=== PATIENT | male | born 1960 | race Caucasian/White ===

== ENCOUNTER 2020-04-30 14:50 | Inpatient (IN) | payer OTHER ==
[~2020-04-30] VITALS: Ht 175.3 cm; Wt 120.1 kg
[2020-04-30] MEDS: BUDESONIDE (INHALATION) 180 MCG IH IN SCH (06:54)
[2020-04-30] MEDS: ALBUTEROL SULF HFA 90MCG INH 200DOSE IN SCH (06:54)
[2020-04-30 16:08] LABS: Basophils # (auto) 0 10 ^3/uL (0-0.2); Basophils % (auto) 0.3 % (0.0-2.0); Eosinophils # (auto) 0 10 ^3/uL (0-0.8); Eosinophils % (auto) 0.3 % (0.0-7.0); Hematocrit 43.3 % (41.0-53.0); Hemoglobin 14.5 g/dL (13.5-17.5); Lymphocytes # (auto) 0.5 10 ^3/uL (0.4-5.4); Lymphocytes % (auto) 14.3 % (10.0-50.0); Mean Corpuscular Hemoglobin 29.4 pg (28.0-32.0); Mean Corpuscular Hgb Conc. 33.5 g/dL (32.0-36.0); Mean Corpuscular Volume 87.7 fL (80.0-100.0); Monocytes # (auto) 0.2 10 ^3/uL (0-1.3); Monocytes % (auto) 5.3 % (0.0-12.0); Neutrophils % (auto) 79.8 % (37.0-80.0); Nucleated Red Blood Cells % 0.1 %; Platelet Count (auto) 207 10^3/uL (140-450); Red Blood Cells 4.94 10^6/uL (4.5-5.90); Red Cell Distribution Width 14.5 % (11.8-14.3); White Blood Cell 3.7 10^3/uL (4.4-10.8)
[2020-04-30 16:16] LABS: Albumin 3.1 g/dL (3.4-5.0); Anion Gap 3 (5-15); Blood Urea Nitrogen 25 mg/dL (7-18); Calcium 8.8 mg/dL (8.5-10.1); Carbon Dioxide 28 mmol/L (21-32); Chloride 110 mmol/L (98-107); Glucose 101 mg/dL (74-106); Potassium 4.5 mmol/L (3.5-5.1); Sodium 141 mmol/L (136-145)
[2020-04-30 16:31] LABS: Alanine Aminotransferase 22 U/L (16-61); Alkaline Phosphatase 74 U/L (45-117); Aspartate Aminotransferase 29 U/L (15-37); BUN/Creatinine Ratio 20.5; Bilirubin, Total 0.5 mg/dL (0.2-1.0); GFR African American 78 mL/min; GFR Non-African American 64 mL/min
[2020-04-30] MEDS ORDERED: BAMLANIVIMAB 700MG/200ML 200 ML IV ONE (17:00)
[2020-04-30] MEDS ORDERED: DexAMETHasone SOD PHOS 10MG/1ML VIAL INJ ONE (17:47)
[2020-04-30] MEDS ORDERED: CHOLECALCIFEROL (VITD3) 2,000 UNIT CAP PO ONE (18:15)
[2020-04-30] MEDS ORDERED: ALBUTEROL SULF 2.5 MG/0.5ML(0.5%) NEB SOLN NEB PRN (18:15)
[2020-04-30] MEDS ORDERED: NITROGLYCERIN 0.4 MG SL TAB SL PRN (18:15)
[2020-04-30] MEDS ORDERED: REMDESIVIR PER PHARMACY 0 ML IV SCH (18:15)
[2020-04-30] MEDS ORDERED: ZINC SULFATE 220mg CAP or TAB PO ONE (18:15)
[2020-04-30] MEDS ORDERED: DexAMETHasone SOD PHOS 10MG/1ML VIAL INJ IV ONE (18:15)
[2020-04-30] MEDS ORDERED: MORPHINE SULF INJ 2 MG/ML SYRINGE 1ML IV PRN (18:15)
[2020-04-30] MEDS ORDERED: BUDESONIDE (INHALATION) 0.5 MG/2 ML NEB NEB ONE (18:15)
[2020-04-30] MEDS ORDERED: ASCORBIC ACID 500 MG TAB PO ONE (18:15)
[2020-04-30] MEDS ORDERED: ENOXAPARIN SOD 40 MG/0.4 ML SYRINGE SC ONE (18:30)
[2020-04-30] MEDS: DOXYCYCLINE 100MG/250ML 250 ML IV SCH (18:37)
[2020-04-30] MEDS ORDERED: LOSA-69 PO (19:58)
[2020-04-30] MEDS ORDERED: BUPR300T28 PO (19:58)
[2020-04-30] MEDS ORDERED: ATEN-60 PO (19:58)
[2020-04-30] MEDS ORDERED: ALLO300T2 PO (19:58)
[2020-04-30] MEDS ORDERED: HYDR-531 PO (19:58)
[2020-04-30] MEDS ORDERED: REMDESIVIR 200 MG in NS 210ml LOADING DOSE ADULT IV ONE (20:30)
[2020-04-30] MEDS: FAMOTIDINE (10MG/ML) 2ML VL IV SCH (20:42)
[2020-04-30] MEDS: ASCORBIC ACID 500 MG TAB PO SCH (20:42)
[2020-04-30] MEDS: ACETAMINOPHEN 325 MG TAB PO PRN (20:53)
[2020-04-30] MEDS ORDERED: BUDESONIDE (INHALATION) 0.5 MG/2 ML NEB NEB SCH (22:00)
[2020-04-30] MEDS ORDERED: PATIENTS OWN MEDICATION (PULMICORT 360 MCG) IN SCH (22:00)
[2020-04-30 22:36] LABS: Urine Bacteria NONE SEEN /hpf (None Seen); Urine Blood TRACE /uL (Negative); Urine Mucus FEW (None Seen); Urine Specific Gravity 1.029 (1.001-1.035); Urine WBC 1 /hpf (0 - 3)
[2020-04-30 23:56] VITALS: BP 141/83
[2020-05-01] MEDS: ENOXAPARIN SOD 40 MG/0.4 ML SYRINGE SC SCH ×2 (05:28→18:20)
[2020-05-01] MEDS: DOXYCYCLINE 100MG/250ML 250 ML IV SCH ×2 (05:29→20:52)
[2020-05-01] MEDS: BUDESONIDE (INHALATION) 180 MCG IH IN SCH ×2 (06:54→18:39)
[2020-05-01] MEDS: ALBUTEROL SULF HFA 90MCG INH 200DOSE IN SCH ×3 (06:54→18:39)
[2020-05-01 08:00] VITALS: BP 126/67
[2020-05-01] MEDS: FAMOTIDINE (10MG/ML) 2ML VL IV SCH ×2 (10:30→22:00)
[2020-05-01] MEDS: CHOLECALCIFEROL (VITD3) 2,000 UNIT CAP PO SCH (10:31)
[2020-05-01] MEDS: ZINC SULFATE 220mg CAP or TAB PO SCH (10:31)
[2020-05-01] MEDS: ASCORBIC ACID 500 MG TAB PO SCH ×2 (10:31→22:37)
[2020-05-01] MEDS: ACETAMINOPHEN 325 MG TAB PO PRN ×2 (10:31→18:30)
[2020-05-01] MEDS: DexAMETHasone SOD PHOS 10MG/1ML VIAL INJ IV SCH (10:32)
[2020-05-01 11:33] LABS: Basophils # (auto) 0 10 ^3/uL (0-0.2); Basophils % (auto) 0.1 % (0.0-2.0); Eosinophils # (auto) 0 10 ^3/uL (0-0.8); Hematocrit 42.3 % (41.0-53.0); Hemoglobin 14.1 g/dL (13.5-17.5); Lymphocytes # (auto) 0.4 10 ^3/uL (0.4-5.4); Lymphocytes % (auto) 10.5 % (10.0-50.0); Mean Corpuscular Hemoglobin 28.9 pg (28.0-32.0); Mean Corpuscular Hgb Conc. 33.3 g/dL (32.0-36.0); Mean Corpuscular Volume 86.8 fL (80.0-100.0); Monocytes # (auto) 0.3 10 ^3/uL (0-1.3); Monocytes % (auto) 6.7 % (0.0-12.0); Neutrophils # (auto) 3.1 10 ^3/uL (1.6-8.6); Neutrophils % (auto) 82.7 % (37.0-80.0); Nucleated Red Blood Cells % 0.2 %; Platelet Count (auto) 240 10^3/uL (140-450); Red Blood Cells 4.87 10^6/uL (4.5-5.90); White Blood Cell 3.8 10^3/uL (4.4-10.8)
[2020-05-01 11:48] LABS: Albumin 2.6 g/dL (3.4-5.0); Calcium 8.6 mg/dL (8.5-10.1)
[2020-05-01 11:53] LABS: BUN/Creatinine Ratio 22.1; Bilirubin, Total 0.3 mg/dL (0.2-1.0); Total Protein 6.5 g/dL (6.4-8.2)
[2020-05-01] MEDS: REMDESIVIR 100mg 100 MG in SODIUM CHL 0.9% 230 ML IV SCH (15:00)
[2020-05-01 16:00] VITALS: BP 132/78
[2020-05-01] MEDS ORDERED: POTASSIUM EFFERVESENT TAB 25 MEQ PO ONE (16:30)
[2020-05-01] MEDS ORDERED: FUROSEMIDE 20 MG/2 ML VIAL IV ONE (16:30)
[2020-05-01] MEDS ORDERED: FUROSEMIDE 40 MG/4 ML VIAL IV ONE (18:00)
[2020-05-02] VITALS: BP 112/65
[2020-05-02] MEDS: ACETAMINOPHEN 325 MG TAB PO PRN ×2 (00:34→06:20)
[2020-05-02] MEDS: ALBUTEROL SULF HFA 90MCG INH 200DOSE IN SCH ×3 (06:03→20:27)
[2020-05-02] MEDS: BUDESONIDE (INHALATION) 180 MCG IH IN SCH ×2 (06:03→20:27)
[2020-05-02] MEDS: ENOXAPARIN SOD 40 MG/0.4 ML SYRINGE SC SCH ×2 (06:19→18:22)
[2020-05-02] MEDS: DOXYCYCLINE 100MG/250ML 250 ML IV SCH ×2 (06:19→18:22)
[2020-05-02 08:00] VITALS: BP 131/78
[2020-05-02] MEDS: DexAMETHasone SOD PHOS 10MG/1ML VIAL INJ IV SCH (09:51)
[2020-05-02] MEDS: FUROSEMIDE 40 MG/4 ML VIAL IV SCH (09:51)
[2020-05-02] MEDS: POTASSIUM EFFERVESENT TAB 25 MEQ PO SCH (09:52)
[2020-05-02] MEDS: ASCORBIC ACID 500 MG TAB PO SCH ×2 (09:52→21:14)
[2020-05-02] MEDS: ZINC SULFATE 220mg CAP or TAB PO SCH (09:52)
[2020-05-02] MEDS: FAMOTIDINE (10MG/ML) 2ML VL IV SCH ×2 (09:52→21:14)
[2020-05-02] MEDS: CHOLECALCIFEROL (VITD3) 2,000 UNIT CAP PO SCH (09:52)
[2020-05-02 12:44] LABS: BUN/Creatinine Ratio 28.2; Bilirubin, Total 0.4 mg/dL (0.2-1.0); Potassium 3.7 mmol/L (3.5-5.1); Total Protein 6.8 g/dL (6.4-8.2)
[2020-05-02] MEDS: REMDESIVIR 100mg 100 MG in SODIUM CHL 0.9% 230 ML IV SCH (14:40)
[2020-05-02 16:11] VITALS: BP 127/75
[2020-05-02] MEDS ORDERED: HYDROcodone-ACET 5/325MG TAB PO ONE (21:00)
[2020-05-03] VITALS: BP 143/86
[2020-05-03] MEDS: ACETAMINOPHEN 325 MG TAB PO PRN ×2 (04:33→10:40)
[2020-05-03] MEDS: ENOXAPARIN SOD 40 MG/0.4 ML SYRINGE SC SCH ×2 (05:48→17:34)
[2020-05-03] MEDS: DOXYCYCLINE 100MG/250ML 250 ML IV SCH ×2 (05:49→17:34)
[2020-05-03 07:17] LABS: Potassium 3.7 mmol/L (3.5-5.1)
[2020-05-03 07:33] LABS: Albumin 2.7 g/dL (3.4-5.0); BUN/Creatinine Ratio 34.7; Bilirubin, Total 0.4 mg/dL (0.2-1.0); Calcium 8.3 mg/dL (8.5-10.1)
[2020-05-03] MEDS: BUDESONIDE (INHALATION) 180 MCG IH IN SCH ×2 (07:45→19:12)
[2020-05-03] MEDS: ALBUTEROL SULF HFA 90MCG INH 200DOSE IN SCH ×3 (07:45→19:12)
[2020-05-03 08:00] VITALS: BP 142/86
[2020-05-03] MEDS: FUROSEMIDE 40 MG/4 ML VIAL IV SCH (10:00)
[2020-05-03] MEDS: FAMOTIDINE (10MG/ML) 2ML VL IV SCH ×2 (10:38→22:18)
[2020-05-03] MEDS: ZINC SULFATE 220mg CAP or TAB PO SCH (10:39)
[2020-05-03] MEDS: DexAMETHasone SOD PHOS 10MG/1ML VIAL INJ IV SCH (10:39)
[2020-05-03] MEDS: POTASSIUM EFFERVESENT TAB 25 MEQ PO SCH (10:39)
[2020-05-03] MEDS: ASCORBIC ACID 500 MG TAB PO SCH ×2 (10:39→22:18)
[2020-05-03] MEDS: CHOLECALCIFEROL (VITD3) 2,000 UNIT CAP PO SCH (10:40)
[2020-05-03] MEDS ORDERED: HYDROcodone-ACET 10/325MG TAB PO PRN (13:00)
[2020-05-03] MEDS: REMDESIVIR 100mg 100 MG in SODIUM CHL 0.9% 230 ML IV SCH (15:56)
[2020-05-03 16:00] VITALS: BP 128/82
[2020-05-03] MEDS: HYDROcodone-ACET 10/325MG TAB PO PRN (18:48)
[2020-05-03 23:47] VITALS: BP 139/67
[2020-05-04] MEDS: HYDROcodone-ACET 10/325MG TAB PO PRN ×2 (01:44→12:32)
[2020-05-04] MEDS: ENOXAPARIN SOD 40 MG/0.4 ML SYRINGE SC SCH (05:41)
[2020-05-04] MEDS: DOXYCYCLINE 100MG/250ML 250 ML IV SCH (05:41)
[2020-05-04] MEDS: ALBUTEROL SULF HFA 90MCG INH 200DOSE IN SCH ×2 (07:04→09:25)
[2020-05-04 08:00] VITALS: BP 144/86
[2020-05-04 08:13] LABS: Potassium 3.6 mmol/L (3.5-5.1)
[2020-05-04 08:21] LABS: Albumin 2.8 g/dL (3.4-5.0); BUN/Creatinine Ratio 35.6; Bilirubin, Total 0.6 mg/dL (0.2-1.0); Calcium 8.3 mg/dL (8.5-10.1); Total Protein 6.2 g/dL (6.4-8.2)
[2020-05-04] MEDS: BUDESONIDE (INHALATION) 180 MCG IH IN SCH (09:25)
[2020-05-04] MEDS: FAMOTIDINE (10MG/ML) 2ML VL IV SCH (10:00)
[2020-05-04] MEDS: ZINC SULFATE 220mg CAP or TAB PO SCH (10:58)
[2020-05-04] MEDS: CHOLECALCIFEROL (VITD3) 2,000 UNIT CAP PO SCH (10:59)
[2020-05-04] MEDS: ASCORBIC ACID 500 MG TAB PO SCH (10:59)
[2020-05-04] MEDS: DexAMETHasone SOD PHOS 10MG/1ML VIAL INJ IV SCH (11:03)
[2020-05-04] MEDS: POTASSIUM EFFERVESENT TAB 25 MEQ PO SCH (11:04)
[2020-05-04] MEDS: FUROSEMIDE 40 MG/4 ML VIAL IV SCH (11:08)
[2020-05-04] MEDS: REMDESIVIR 100mg 100 MG in SODIUM CHL 0.9% 230 ML IV SCH (14:57)
[2020-05-04 16:00] VITALS: BP 151/88
== END 2020-05-04 18:00 | disposition home or self-care (01) | DRG 871 ==
LOC: ER 14:50 → TELE 18:11 → TELE-WESTW 19:19
PROVIDERS: ADMIT Internal Medicine; ATTEND Internal Medicine
PROC: XW033E5 Introduction of Remdesivir Anti-infective into Peripheral Vein, Percutaneous Approach, New Technology Group 5 (ICD-10-PCS; principal; 2020-05-01)
DX: A41.89 Other specified sepsis (principal); J12.82 Pneumonia due to coronavirus disease 2019; U07.1 COVID-19; J96.01 Acute respiratory failure with hypoxia; D89.839 Cytokine release syndrome, grade unspecified; E66.9 Obesity, unspecified; Z68.39 Body mass index [BMI] 39.0-39.9, adult; G89.29 Other chronic pain; R65.20 Severe sepsis without septic shock; R73.9 Hyperglycemia, unspecified; I10 Essential (primary) hypertension; Z79.82 Long term (current) use of aspirin; Z88.8 Allergy status to other drugs, medicaments and biological substances
CPT/HCPCS: 36415; 71045; 80053; 81001; 82306; 82728; 83036; 83605; 83615; 84484; 85025; 85379; 86141; 87040; 87081; 87426; 93005; 94640; 96365; 96367; 96372; 96375; G0378; J1100; J3490